=== PATIENT | male | born 1985 | race Caucasian/White ===

== ENCOUNTER 2018-12-20 15:26 | Emergency (ER) | payer OTHER ==
[2018-12-20 15:29] VITALS: BP 133/77; PULSE 99; TEMP 98.1; BMI 32.5
[2018-12-20] MEDS ORDERED: METHOCARBAMOL 500 MG TABLET PO ONE (16:01)
[2018-12-20] MEDS ORDERED: KETOROLAC TROMETHAMINE 30 MG/1 ML VIAL IM ONE (16:01)
[2018-12-20] MEDS ORDERED: METHOCARBAMOL 500 MG TABLET ONE (16:03)
[2018-12-20] MEDS ORDERED: KETOROLAC TROMETHAMINE 30 MG/1 ML VIAL ONE (16:03)
--- NOTE | 2018-12-20 16:10 | PDOC ---
History of Present Illness - General Chief Complaint: Pain Stated Complaint: LT CALF PAIN Time Seen by Provider: 12/20/18 15:50 History Source: Patient Exam Limitations: Clinical Condition - History of Present Illness Initial Comments: 12/20/18 16:03 Patient with no significant past medical history present with complaint of left calf muscle pain status post jumping during a basketball game and he feeling a popping sound to left calf muscle. Patient reported increased pain to medial side of left calf muscle with ambulation. Patient did not take anything for pain. Denies weakness in left leg Occurred: reports: just prior to arrival Past History - Past Medical History Allergies/Adverse Reactions: Allergies Allergy/AdvReac Type Severity Reaction Status Date / Time venom-honey bee Allergy Severe Swelling Verified 12/20/18 15:29 [bee venom (honey bee)] Home Medications: Ambulatory Orders No Home Medications 0 dose .ROUTE UTDICT 11/19/13 Methocarbamol [Robaxin -] 500 mg PO BID #14 tablet 12/20/18 Naproxen 500 mg PO BID PRN #20 tablet 12/20/18 COPD: No - Immunization History Immunization Up to Date: No - Suicide/Smoking/Psychosocial Hx Smoking Status: No Smoking History: Never smoked Have you smoked in the past 12 months: No Number of Cigarettes Smoked Daily: 0 Hx Alcohol Use: No Review of Systems - Review of Systems Able to Perform ROS?: Yes Is the patient limited Burmese proficient: No Constitutional: No: Malaise, Weakness HEENTM: No: Symptoms Reported Respiratory: No: Symptoms reported Cardiac (ROS): No: Symptoms Reported ABD/GI: No: Symptoms Reported Musculoskeletal: Yes: Symptoms Reported, See HPI, Muscle Pain (left calf pain). No: Muscle Weakness Neurological: No: Symptoms reported, Numbness, Paresthesia, Tingling, Weakness All Other Systems: Reviewed and Negative *Physical Exam - Vital Signs Last Vital Signs Temp Pulse Resp BP Pulse Ox 98.1 F 99 H 18 133/77 97 12/20/18 15:27 12/20/18 15:27 12/20/18 15:27 12/20/18 15:27 12/20/18 15:27 - Physical Exam Comments: 12/20/18 16:08 GENERAL: Well developed, well nourished. Awake and alert in mild acute distress. PULMONARY: No evidence of respiratory distress. MUSCULOSKELETAL : mild tenderness over posterior paravertebral muscle of medial aspect of left calf muscle .no bony deformities . Negative Nails sign of left lower extremity EXTREMITIES: No cyanosis. No clubbing. No edema. Mild tenderness to medial aspect of left calf tenderness. SKIN: Warm and dry. Normal capillary refill. NEUROLOGICAL: Alert, awake, appropriate. No motor deficits in the lower extremities. Gait is normal without ataxia. PSYCHIATRIC: Cooperative. Good eye contact. Appropriate mood and affect. General Appearance: Yes: Nourished, Appropriately Dressed, Apparent Distress, Mild Distress ED Treatment Course - RADIOLOGY Radiology Studies Ordered: Category Date Time Status ANKLE-LEFT [RAD] Stat Radiology 12/20/18 15:57 Ordered LEG TIB/FIB-LEFT [RAD] Stat Radiology 12/20/18 15:57 Ordered Medical Decision Making - Medical Decision Making 12/20/18 16:04 Patient with no significant past medical history present with complaint of left calf muscle pain status post jumping during a basketball game and he feeling a popping sound to left calf muscle. Patient reported increased pain to medial side of left calf muscle with ambulation. Patient did not take anything for pain. Denies weakness in left leg Exam significant for mild tenderness to medial aspect of left calf muscle with no tenderness to achilles tendon insertion site or popliteal fossa. Negative Nails's sign area Symptoms likely leg sprain causing spasm. Toradol 30 mg IM and Robaxin 500 mg by mouth ordered for pain and spasm. X-ray of left leg and ankle ordered to rule out Achilles tendon rupture 12/20/18 17:08 X-ray of left lower leg and ankle shows no acute pathology with intact Achilles tendon. 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 Patient is stable for discharge on naproxen when necessary for pain and Robaxin for spasm with advised to do hot compresses. Crutches provided to help keep weight off left leg for the next 24 hours *DC/Admit/Observation/Transfer Diagnosis at time of Disposition: Muscle spasm of left calf - Discharge Dispostion Disposition: HOME Condition at time of disposition: Stable Decision to Admit order: No - Prescriptions Prescriptions: Methocarbamol [Robaxin -] 500 mg PO BID #14 tablet Naproxen 500 mg PO BID PRN #20 tablet PRN Reason: pain - Referrals Referrals: Tho Hunt DO [Staff Physician] - - Patient Instructions Printed Discharge Instructions: Calf Muscle Strain, DI for Calf Muscle Strain Additional Instructions: x-ray is normal. Rest calf muscle. Your symptoms likely from calf muscle strain. Take prescribed medication as needed for pain and spasm. Apply hot compresses to cuff muscle 2-3 times a day as needed for pain and follow-up referred orthopedics if no improvement in 3 days - Post Discharge Activity Forms/Work/School Notes: Back to Work
== END 2018-12-20 17:15 | disposition home or self-care (01) ==
LOC: JERFT 15:26
PROC: 3E0233Z Introduction of Anti-inflammatory into Muscle, Percutaneous Approach (ICD-10-PCS; principal; 2018-12-20)
DX: M62.831 Muscle spasm of calf (principal)
CPT/HCPCS: 73590-TC-LT-FY; 73610-TC-LT-FY; 99282-25